=== PATIENT | female | born 1945 | race Caucasian/White ===

== ENCOUNTER 2019-04-13 17:02 | Emergency (ER) | payer MEDICARE, OTHER ==
[2019-04-13] MEDS ORDERED: BABY ASPIRIN 81 MG CHEW PO ONE (17:23)
[2019-04-13] MEDS ORDERED: MORPHINE SULFATE 2 MG INJ IV ONE (17:23)
[2019-04-13] MEDS ORDERED: Carafate 1 GM PO ONE ×2 (17:23→17:29)
[2019-04-13] MEDS ORDERED: Zofran 4 MG/2 ML VIAL IV ONE (17:23)
--- NOTE | 2019-04-13 17:23 | ERPHSYRPT ---
- History of Present Illness Time Seen by Provider: 04/13/19 17:05 Historian: patient, family Exam Limitations: no limitations Patient Subjective Stated Complaint: Chest pain Triage Nursing Assessment: Patient brought back to ED via w/c and transferred to bed per self. Patient A+O X3. Patient's skin pink,warm and dry. Patient complains of constant sharp chest pain in the middle of chest that goes in between shoulder blades for the past 3 days that has increased. Patient's lungs clear a/p donis. Heart tones audible. No edema noted. Physician History: retrosternal pain for the last 3 days. Pain is constant and also radiates to the left arm and the neck. No nausea vomiting. Patient says it feels like it is a bad case of indigestion. Timing/Duration: day(s) (3) Activities at Onset: none Quality: other (indigestion) Location: substernal Chest Pain Radiation: jaw, neck, arm Severity of Pain-Max: moderate Severity of Pain-Current: moderate Modifying Factors: Improves With: nothing Associated Symptoms: nausea, heartburn, No vomiting, No palpitations, No abdominal pain, No shortness of breath, No cough, No hurts to breathe, No diaphoresis, No chills, No fever, No fatigue, No weakness, No swelling/lump in chest, No syncope Prior Chest Pain/Cardiac Workup: no prior cardiac workup Nitro Today/Relief: no nitro taken today Aspirin Treatment Today: no aspirin today Allergies/Adverse Reactions: hydrocodone bitartrate [From [place]] Allergy (Mild, Verified 04/13/19 17:08) Nausea and Vomiting tramadol Allergy (Mild, Verified 04/13/19 17:08) Nausea and Vomiting Home Medications: Fenofibrate 54 mg PO DAILY 03/31/12 [History] Ascorbate Calcium [Vitamin C] 1,000 mg PO DAILY 11/30/13 [History] Calcium 500 mg PO DAILY 11/30/13 [History] ALPRAZolam [Xanax 0.5 mg] 0.5 mg PO HS 02/20/15 [History] Losartan Potassium [Cozaar 100Mg Tablet] 100 mg PO DAILY 02/20/15 [History] Insulin Aspart [Novolog] 25 units SQ BID 04/13/19 [History] Insulin Glargine,Hum.rec.anlog [Basaglar Kwikpen U-100] 50 units SQ BID [History] Hx Tetanus, Diphtheria Vaccination/Date Given: (UNKNOWN) Hx Influenza Vaccination/Date Given: Yes Hx Pneumococcal Vaccination/Date Given: Yes Immunizations Up to Date: Yes - Review of Systems Constitutional: No Fever, No Chills Eyes: No Symptoms Ears, Nose, & Throat: No Symptoms Respiratory: No Cough, No Dyspnea Cardiac: Chest Pain, No Edema, No Syncope Abdominal/Gastrointestinal: Other (indigestion), No Abdominal Pain, No Nausea, No Vomiting, No Diarrhea Genitourinary Symptoms: No Dysuria Musculoskeletal: No Back Pain, No Neck Pain Skin: No Rash Neurological: No Dizziness, No Focal Weakness, No Sensory Changes Psychological: No Symptoms Endocrine: No Symptoms All Other Systems: Reviewed and Negative - Past Medical History Pertinent Past Medical History: No Neurological History: No Pertinent History ENT History: Cataracts Cardiac History: High Cholesterol Respiratory History: No Pertinent History Endocrine Medical History: Diabetes Type II Musculoskeletal History: Arthritis GI Medical History: No Pertinent History History: No Pertinent History Psycho-Social History: No Pertinent History Female Reproductive Disorders: No Pertinent History Other Medical History: denies HTN - Past Surgical History Past Surgical History: Yes Neuro Surgical History: No Pertinent History Cardiac: No Pertinent History Respiratory: No Pertinent History Gastrointestinal: Cholecystectomy Genitourinary: No Pertinent History Musculoskeletal: Orthopedic Surgery Female Surgical History: No Pertinent History Other Surgical History: back discectomy, back for arthritis, fx repair back. bilateral carpal tunel and bilateral trigger finger, back stimulator - Social History Smoking Status: Never smoker Exposure to second hand smoke: No Drug Use: none Patient Lives Alone: No - Female History Hx Last Menstrual Period: menopausal Hx Now: No - Nursing Vital Signs Nursing Vital Signs: Initial Vital Signs Pulse Rate 91 H 04/13/19 17:09 Respiratory Rate 19 04/13/19 17:09 Blood Pressure 164/69 04/13/19 17:09 O2 Sat by Pulse Oximetry 97 04/13/19 17:09 Pain Scale Pain Intensity 10 - Physical Exam General Appearance: no apparent distress, alert Eye Exam: PERRL/EOMI, eyes nml inspection Ears, Nose, Throat Exam: normal ENT inspection, moist mucous membranes Neck Exam: normal inspection, non-tender, supple, full range of motion Respiratory Exam: normal breath sounds, lungs clear, No respiratory distress Cardiovascular Exam: regular rate/rhythm, normal heart sounds, normal peripheral pulses, tachycardia, capillary refill <2 sec, No murmur, No friction rub, No gallop Gastrointestinal/Abdomen Exam: soft, No tenderness, No mass Back Exam: normal inspection, No CVA tenderness, No vertebral tenderness Extremity Exam: normal inspection, normal range of motion Neurologic Exam: alert, oriented x 3, cooperative, normal mood/affect, sensation nml, No motor deficits Skin Exam: normal color, warm, dry SpO2: 97 - Course Nursing assessment & vital signs reviewed: Yes EKG Interpreted by Me: RATE (88), Sinus Rhythm, Sinus Tach, NORMAL AXIS, NORMAL INTERVALS, NORMAL QRS - Radiology Exams Chest X-ray Interpretation: Interpreted by me, Negative Ordered Tests: Active Orders 24 hr Category Date Time Status Delicate [employer] Presser STAT Care 04/13/19 17:24 Active EKG-ER Only STAT Care 04/13/19 17:23 Active IV Insertion STAT Care 04/13/19 17:23 Active CHEST 1 VIEW (PORTABLE) Stat Exams 04/13/19 17:24 Ordered CBC W DIFF Stat Lab 04/13/19 17:40 Completed CK-Creatinine Phosphokinase Stat Lab 04/13/19 17:40 Completed CMP Stat Lab 04/13/19 17:40 Completed NT PRO BNP Stat Lab 04/13/19 17:40 Completed PROTIME WITH INR Stat Lab 04/13/19 17:40 Received PTT Stat Lab 04/13/19 17:40 Received TROPONIN Q3H Lab 04/13/19 17:40 Completed TROPONIN Q3H Lab 04/13/19 20:30 Ordered TROPONIN Q3H Lab 04/13/19 23:30 Ordered TROPONIN Q3H Lab 04/14/19 02:30 Ordered TROPONIN Q3H Lab 04/14/19 05:30 Ordered Medication Summary Discontinued Medications Generic Name Dose Route Start Last Admin Trade Name Freq PRN Reason Stop Dose Admin Aspirin 324 mg 04/13/19 17:23 04/13/19 17:31 Baby Aspirin 81 Mg Chew PO 04/13/19 17:24 324 mg STAT ONE Administration Aspirin Confirm 04/13/19 17:29 Baby Aspirin 81 Mg Chew Administered 04/13/19 17:30 Dose 324 mg .ROUTE .STK-MED ONE Morphine Sulfate 2 mg 04/13/19 17:23 04/13/19 17:34 Morphine Sulfate 2 Mg Inj IV 04/13/19 17:24 2 mg STAT ONE Administration Morphine Sulfate Confirm 04/13/19 17:29 Morphine Sulfate 2 Mg Inj Administered 04/13/19 17:30 Dose 2 mg .ROUTE .STK-MED ONE Ondansetron HCl 4 mg 04/13/19 17:23 04/13/19 17:31 Zofran 4 Mg/2 Ml Vial IV 04/13/19 17:24 4 mg STAT ONE Administration Ondansetron HCl Confirm 04/13/19 17:29 Zofran 4 Mg/2 Ml Vial Administered 04/13/19 17:30 Dose 4 mg .ROUTE .STK-MED ONE Sucralfate 1 g 04/13/19 17:23 04/13/19 17:31 Carafate 1 Gm PO 04/13/19 17:24 1 g STAT ONE Administration Sucralfate Confirm 04/13/19 17:29 Carafate 1 Gm Administered 04/13/19 17:30 Dose 1 g PO .STK-MED ONE Lab/Rad Data: Laboratory Result Diagrams 04/13/19 17:40 04/13/19 17:40 Laboratory Results 04/13/19 04/13/19 04/13/19 Range/Units 17:40 17:40 17:40 WBC 13.9 H (4.0-10.5) K/mm3 RBC 4.57 (4.1-5.4) M/mm3 Hgb 14.5 (12.0-16.0) gm/dl Hct 44.9 (35-47) % MCV 98.2 (78-100) fl MCH 31.7 (26-32) pg MCHC 32.3 (32-36) g/dl RDW 14.1 H (11.5-14.0) % Plt Count 300 (150-450) K/mm3 MPV 10.8 H (6-9.5) fl Gran % 65.8 (36.0-66.0) % Eos # (Auto) 0.21 (0-0.5) Absolute Lymphs (auto) 3.57 (1.0-4.6) Absolute Monos (auto) 0.95 (0.0-1.3) Lymphocytes % 25.6 (24.0-44.0) % Monocytes % 6.8 (0.0-12.0) % Eosinophils % 1.5 (0.00-5.0) % Basophils % 0.3 (0.0-0.4) % Absolute Granulocytes 9.15 H (1.4-6.9) Basophils # 0.04 (0-0.4) Sodium 139 (137-145) mmol/L Potassium 4.5 (3.5-5.1) mmol/L Chloride 105 (98-107) mmol/L Carbon Dioxide 26 (22-30) mmol/L Anion Gap 12.4 (5-15) MEQ/L BUN 25 H (7-17) mg/dL Creatinine 1.00 (0.52-1.04) mg/dL Estimated GFR 57.8 ML/MIN Glucose 112 H (74-106) mg/dL Calcium 9.9 (8.4-10.2) mg/dL Total Bilirubin 0.60 (0.2-1.3) mg/dL AST 44 H (14-36) U/L ALT 36 H (0-35) U/L Alkaline Phosphatase 72 (38-126) U/L Creatine Kinase 47 (30-135) U/L Troponin I < 0.012 (0.000-0.034) ng/mL NT-Pro-B Natriuret Pep 99.9 (0-900) pg/mL Serum Total Protein 8.5 H (6.3-8.2) g/dL Albumin 4.6 (3.5-5.0) g/dL - Progress Progress: improved Air Movement: good Progress Note: 04/13/19 18:21 workup negative. Advised admission to rule out ACS. Patient refused. The patient's family in the room. I explained the risks and options. They understood. The patient is a set this is been going on for 3 days. I think I' m okay. I want to go home. She understood the risk. And leaving AMA Blood Culture(s) Obtained: No Antibiotics given: No Counseled pt/family regarding: lab results, diagnosis, need for follow-up, rad results - Departure Departure Disposition: AMA Clinical Impression: Chest pain Qualifiers: Chest pain type: unspecified Qualified Code(s): R07.9 - Chest pain, unspecified Condition: Fair Critical Care Time: No Referrals: SUMANTH ZARAGOZA MD [Primary Care Provider] - 04/14/19 Instructions: Chest Pain (DC) Plan of Treatment: PCP tomorrow for further workup and management. Return to the ER for any emergency or new symptoms or worsening.
[2019-04-13] MEDS ORDERED: Zofran 4 MG/2 ML VIAL ONE (17:29)
[2019-04-13] MEDS ORDERED: BABY ASPIRIN 81 MG CHEW ONE (17:29)
[2019-04-13] MEDS ORDERED: MORPHINE SULFATE 2 MG INJ ONE (17:29)
[2019-04-13 17:39] LABS: Absolute Neutrophil Ct (ANC) 9.15 (1.4-6.9); BASOPHIL % 0.3 % (0.0-0.4); Basophil (Absolute #) 0.04 (0-0.4); Eosinophil % 1.5 % (0.00-5.0); Eosinophil (Absolute #) 0.21 (0-0.5); Hematocrit 44.9 % (35-47); Hemoglobin 14.5 gm/dl (12.0-16.0); Lymphocyte (Absolute #) 3.57 (1.0-4.6); Lymphocytes % 25.6 % (24.0-44.0); Mean Cell Volume 98.2 fl (78-100); Mean Corpuscular Hemoglobin 31.7 pg (26-32); Mean Corpuscular Hgb Concent. 32.3 g/dl (32-36); Mean Platelet Volume 10.8 fl (6-9.5); Monocyte (Absolute #) 0.95 (0.0-1.3); Monocytes % 6.8 % (0.0-12.0); Neutrophil % 65.8 % (36.0-66.0); Platelet Count 300 K/mm3 (150-450); Red Blood Count 4.57 M/mm3 (4.1-5.4); Red Cell Distribution Width 14.1 % (11.5-14.0); White Blood Count 13.9 K/mm3 (4.0-10.5)
[2019-04-13 17:59] LABS: ALBUMIN 4.6 g/dL (3.5-5.0); ANION GAP 12.4 MEQ/L (5-15); BILIRUBIN,TOTAL 0.6 mg/dL (0.2-1.3); Calcium 9.9 mg/dL (8.4-10.2); NT PRO BNP 99.9 pg/mL (0-900); Potassium 4.5 mmol/L (3.5-5.1); Total Protein 8.5 g/dL (6.3-8.2)
[2019-04-13 18:26] VITALS: BP 133/66; PULSE 82; O2SAT 96
[2019-04-13 19:04] LABS: INR 1.11 (0.8-3.0); PROTIME 12.6 SECONDS (9.95-12.35); PTT 35.2 SECONDS (25.3-37.0)
--- NOTE | 2019-04-14 08:35 | XRAY ---
Indication: Chest pain. Comparison: July 28, 2013. Portable chest underinflated and clear. Heart and mediastinal structures within normal limits. Bony thorax intact with mild degenerative changes and new spinal stimulator leads terminating mid thoracic level. Impression: Nonacute underinflated chest with chronic features.
== END 2019-04-13 18:33 | disposition left against medical advice (07) ==
LOC: ED 17:02
DX: R07.9 Chest pain, unspecified (principal); Z79.899 Other long term (current) drug therapy; E11.9 Type 2 diabetes mellitus without complications; M19.90 Unspecified osteoarthritis, unspecified site
CPT/HCPCS: 36000; 36415; 71045; 80053; 82550; 83880; 84484; 85025; 85610; 85730; 93005; 93041; 96374; 96375; 99284; J2270; J2405; A9270-GY

== ENCOUNTER 2019-06-29 08:33 | Day surgery (SDC) | payer MEDICARE, OTHER ==
[2012-03-31 08:58] VITALS: BP 159/79
[2019-06-29] MEDS ORDERED: Depo-Medrol 40 MG/ML IM ONE (08:34)
[2019-06-29] MEDS ORDERED: Marcaine 0.5% SDV 10 ML IM ONE (08:34)
[2019-06-29] MEDS ORDERED: VERSED 5 MG/5 ML ONE (09:37)
[2019-06-29] MEDS ORDERED: DIPRIVAN 200 MG/20 ML IV ONE (10:09)
[2019-06-29] MEDS ORDERED: Ketamine HCl 50 MG/ML ONE (10:10)
--- NOTE | 2019-06-29 12:28 | XRAY ---
Indication: Bilateral SI joint injection. Intraoperative fluoroscopy was provided for 16 seconds. 2 lateral digital spot images submitted for interpretation demonstrates posterior needle tip projecting over the mid sacrum. Correlate with intraoperative findings/report. Incidental partially visualized lower lumbar posterior fusion hardware.
--- NOTE | 2019-06-29 12:40 | XRAY ---
16 seconds fluoroscopy time in surgery for bilateral SI joint injections.
[2019-06-29] MEDS ORDERED: Lactated Ringers 1,000 ML IV ONE (14:43)
== END 2019-06-29 10:40 | disposition home or self-care (01) ==
LOC: SDC-PAIN 08:33
PROVIDERS: ATTEND Psychiatry & Neurology Pain Medicine
DX: M46.1 Sacroiliitis, not elsewhere classified (principal); I10 Essential (primary) hypertension; E11.9 Type 2 diabetes mellitus without complications; Z79.899 Other long term (current) drug therapy; H40.9 Unspecified glaucoma
CPT/HCPCS: 27096; 72202; 77002; 82962; J1030; J2250; J2704; G0260

== ENCOUNTER 2022-02-12 09:37 | Day surgery (SDC) | payer MEDICARE ==
[2012-03-31 08:58] VITALS: BP 159/79
[2022-02-12] MEDS ORDERED: BUPIVACAINE 0.5% VIAL IJ ONE (09:38)
[2022-02-12] MEDS ORDERED: Depo-Medrol 40 MG/ML IM ONE (09:38)
[2022-02-12] MEDS ORDERED: Zofran 4 MG/2 ML VIAL ONE (11:21)
[2022-02-12] MEDS ORDERED: DIPRIVAN 200 MG/20 ML IV ONE (11:27)
[2022-02-12] MEDS ORDERED: Lactated Ringers 1,000 ML IV ONE (13:07)
--- NOTE | 2022-02-12 14:15 | XRAY ---
Indication: Bilateral hip injection. Intraoperative fluoroscopy provided for 42 seconds. 6 digital spot image submitted for interpretation demonstrates needle tip projecting lateral to the left and right femur necks. Small amount of contrast injected for both needle tip placement. Correlate with intraoperative findings/report.
--- NOTE | 2022-02-12 14:19 | XRAY ---
42 seconds of fluoroscopy was used in surgery for bilateral hips intra-articular injections.
== END 2022-02-12 12:00 | disposition home or self-care (01) ==
LOC: SDC-PAIN 09:37
PROVIDERS: ATTEND Psychiatry & Neurology Pain Medicine
DX: M16.0 Bilateral primary osteoarthritis of hip (principal); E11.9 Type 2 diabetes mellitus without complications; Z79.899 Other long term (current) drug therapy
CPT/HCPCS: 20610; 73521; 77002; 82947; J1030; J2405; J2704; Q9966

== ENCOUNTER 2023-07-10 09:19 | Emergency (ER) | payer MEDICARE ==
[2023-07-10 09:38] VITALS: TEMP 97.8
--- NOTE | 2023-07-10 09:43 | ERPHSYRPT ---
- History of Present Illness Time Seen by Provider: 07/10/23 09:40 Historian: patient Exam Limitations: no limitations Patient Subjective Stated Complaint: Pt states that she has been vomiting and having diarrhea since yesterday Triage Nursing Assessment: Pt brought to the ER by her , hypertensive, rates pain as 8/10, pulses normal, skin n/w/d, states that she went to the restroom approx 15-20 times yesterday and 3-4 times today, weak, moaning, wheeled into the ER by her , no difficulty breathing Physician History: This is a morbidly obese 78-year-old white female patient of Dr. Zaragoza who presents with symptoms of abdominal pain, vomiting and diarrhea since yesterday and continues today. Patient has had 15-20 diarrheal bowel movements yesterday and already 3-4 this morning. She has some weakness present. She denies chest pain and she denies shortness of breath. Her abdominal pain is described as lower abdominal cramping when she is about ready to have the liquid stool passage. Patient has a history of insulin-dependent diabetes, hypertension, hyperlipidemia and anxiety. Patient denies back pain. Patient is refusing pain medicine at this time. Timing/Duration: yesterday, worse Activities at Onset: other (Passage of liquid stool rectally) Quality: cramping Abdominal Pain Onset Location: suprapubic (At the time of passage of liquid stool) Severity of Pain-Max: mild (To moderate) Severity of Pain-Current: mild (To moderate) Modifying Factors: Improves With: defecating, vomiting Associated Symptoms: diarrhea, loss of appetite, nausea, vomiting, weakness, No chest pain, No fever/chills, No headache, No shortness of breath Previous symptoms: no prior history Allergies/Adverse Reactions: hydrocodone bitartrate [From [place]] Allergy (Mild, Verified 07/10/23 09:38) Nausea and Vomiting tramadol Allergy (Mild, Verified 07/10/23 09:38) Nausea and Vomiting acetaminophen [From Percocet] Adverse Reaction (Verified 07/10/23 09:40) Vomiting fentanyl Adverse Reaction (Verified 07/10/23 09:40) Vomiting hydromorphone [From Dilaudid] Adverse Reaction (Verified 07/10/23 09:40) Vomiting ketorolac [From Toradol] Adverse Reaction (Verified 07/10/23 09:40) Vomiting morphine Adverse Reaction (Verified 07/10/23 09:40) Vomiting oxycodone [From Percocet] Adverse Reaction (Verified 07/10/23 09:40) Vomiting Home Medications: Fenofibrate 54 mg PO DAILY 03/31/12 [History] Ascorbate Calcium [Vitamin C] 1,000 mg PO DAILY 11/30/13 [History] Calcium 500 mg PO DAILY 11/30/13 [History] ALPRAZolam [Xanax 0.5 mg] 0.5 mg PO HS 02/20/15 [History] Losartan Potassium [Cozaar 100Mg Tablet] 100 mg PO DAILY 02/20/15 [History] Insulin Aspart [Novolog] 35 units SQ BID 04/13/19 [History] Insulin Glargine,Hum.rec.anlog [Basaglar Kwikpen U-100] 60 units SQ BID 04/13/19 [History] Bimatoprost 0.01% [Lumigan 0.01% 2.5 ml] 1 drop OP UD 07/10/23 [History] Dorzolamide/Timolol/Pf [Dorzolamide-Timolol 2%-0.5%] 1 each OP UD 07/10/23 [History] Valsartan 160 mg PO DAILY 07/10/23 [History] Hx Tetanus, Diphtheria Vaccination/Date Given: (UNKNOWN) Hx Influenza Vaccination/Date Given: Yes Hx Pneumococcal Vaccination/Date Given: Yes Immunizations Up to Date: Yes Travel Risk - International Travel Have you traveled outside of the country in past 3 weeks: No - Emerging Infectious Disease Are you exhibiting symptoms associated with any current EIDs: Yes Symptoms: Abdominal Pain, Diarrhea, Vomitting - Review of Systems Constitutional: Weakness Eyes: No Symptoms Ears, Nose, & Throat: No Symptoms Respiratory: No Symptoms Cardiac: No Symptoms Abdominal/Gastrointestinal: Abdominal Pain, Nausea, Vomiting, Diarrhea, Appetite Changes Genitourinary Symptoms: No Symptoms Musculoskeletal: No Symptoms Skin: No Symptoms Neurological: No Symptoms Psychological: No Symptoms Endocrine: No Symptoms Hematologic/Lymphatic: No Symptoms Immunological/Allergic: No Symptoms All Other Systems: Reviewed and Negative - Past Medical History Pertinent Past Medical History: Yes Neurological History: No Pertinent History ENT History: Cataracts Cardiac History: High Cholesterol Respiratory History: No Pertinent History Endocrine Medical History: Diabetes Type II Musculoskeletal History: Arthritis GI Medical History: No Pertinent History History: No Pertinent History Psycho-Social History: No Pertinent History Female Reproductive Disorders: No Pertinent History Other Medical History: denies HTN - Past Surgical History Past Surgical History: Yes Neuro Surgical History: No Pertinent History Cardiac: No Pertinent History Respiratory: No Pertinent History Gastrointestinal: Cholecystectomy Genitourinary: No Pertinent History Musculoskeletal: Orthopedic Surgery Female Surgical History: No Pertinent History Other Surgical History: back discectomy, back for arthritis, fx repair back. bilateral carpal tunel and bilateral trigger finger, back stimulator - Social History Smoking Status: Never smoker Exposure to second hand smoke: No Drug Use: none Patient Lives Alone: No - Nursing Vital Signs Nursing Vital Signs: Initial Vital Signs Temperature 97.8 F 07/10/23 09:26 Pulse Rate 92 H 07/10/23 09:26 Blood Pressure 169/103 07/10/23 09:26 O2 Sat by Pulse Oximetry 94 L 07/10/23 09:26 Pain Scale Pain Intensity 8 - Physical Exam General Appearance: no apparent distress, alert, anxiety, obese Eye Exam: PERRL/EOMI, eyes nml inspection Ears, Nose, Throat Exam: normal ENT inspection, moist mucous membranes Neck Exam: normal inspection, non-tender, supple, full range of motion Respiratory Exam: normal breath sounds, lungs clear, airway intact, No chest tenderness, No respiratory distress Cardiovascular Exam: regular rate/rhythm, normal heart sounds, normal peripheral pulses Gastrointestinal/Abdomen Exam: soft, normal bowel sounds, No tenderness, No guarding Pelvic Exam: not done Rectal Exam: not done Back Exam: normal inspection, normal range of motion, No CVA tenderness, No vertebral tenderness Extremity Exam: normal inspection, normal range of motion, pelvis stable Neurologic Exam: alert, oriented x 3, cooperative, statistical engineer II-XII nml as tested, normal mood/affect, nml cerebellar function, nml station & gait, sensation nml Skin Exam: normal color, warm, dry Lymphatic Exam: No adenopathy SpO2 Interpretation: borderline oxygenation SpO2: 94 O2 Delivery: Room Air - Course Nursing assessment & vital signs reviewed: Yes Ordered Tests: Active Orders 24 hr Category Date Time Status IV Insertion STAT Care 07/10/23 09:47 Active ABDOMEN AND PELVIS W/0 CONTRAS [CT] Stat Exams 07/10/23 09:49 Completed AMYLASE Stat Lab 07/10/23 09:54 Completed CBC W DIFF Stat Lab 07/10/23 09:54 Completed CMP Stat Lab 07/10/23 09:54 Completed LIPASE Stat Lab 07/10/23 09:54 Completed Lactic Acid Stat Lab 07/10/23 09:47 Completed Lactic Acid Stat Lab 07/10/23 12:08 Received TROPONIN Q4H Lab 07/10/23 09:54 Completed TROPONIN Q4H Lab 07/10/23 14:00 Ordered TROPONIN Q4H Lab 07/10/23 18:00 Ordered UA W/RFX UR CULTURE Stat Lab 07/10/23 09:49 Ordered Medication Summary Generic Name Dose Route Start Last Admin Trade Name Freq PRN Reason Stop Dose Admin Sodium Chloride 1,000 mls @ 100 mls/hr 07/10/23 10:00 07/10/23 09:56 Sodium Chloride 0.9% 1000 Ml IV 08/09/23 09:59 100 mls/hr .Q10H JACKIE Administration Discontinued Medications Generic Name Dose Route Start Last Admin Trade Name Freq PRN Reason Stop Dose Admin Ondansetron HCl 4 mg 07/10/23 09:47 07/10/23 09:56 Ondansetron Hcl 4 Mg/2 Ml Vial IV 07/10/23 09:48 4 mg STAT ONE Administration Ondansetron HCl Confirm 07/10/23 09:52 Ondansetron Hcl 4 Mg/2 Ml Vial Administered 07/10/23 09:53 Dose 4 mg .ROUTE .STK-MED ONE Pantoprazole Sodium 40 mg 07/10/23 09:47 07/10/23 09:56 Pantoprazole 40 Mg Vial IV 07/10/23 09:48 40 mg STAT ONE Administration Pantoprazole Sodium Confirm 07/10/23 09:52 Pantoprazole 40 Mg Vial Administered 07/10/23 09:53 Dose 40 mg IV .STK-MED ONE Lab/Rad Data: Laboratory Result Diagrams 07/10/23 09:54 07/10/23 09:54 Laboratory Results 07/10/23 07/10/23 07/10/23 Range/Units 11:15 09:54 09:54 WBC (4.0-10.5) x10^3/uL RBC (4.1-5.4) x10^6/uL Hgb (12.0-16.0) g/dL Hct (35-47) % MCV (78-100) fL MCH (26-32) pg MCHC (32-36) g/dL RDW (11.5-14.0) % Plt Count (150-450) x10^3/uL MPV (7.5-11.0) fL Gran % (36.0-66.0) % Immature Gran % (Auto) (0.00-0.4) % Nucleat RBC Rel Count (0.00-0.1) % Eos # (Auto) (0-0.5) x10^3/uL Immature Gran # (Auto) (0.00-0.03) x10^3u/L Absolute Lymphs (auto) (1.0-4.6) x10^3/uL Absolute Monos (auto) (0.0-1.3) x10^3/uL Absolute Nucleated RBC (0.00-0.01) x10^3u/L Lymphocytes % (24.0-44.0) % Monocytes % (0.0-12.0) % Eosinophils % (0.00-5.0) % Basophils % (0.0-0.4) % Absolute Granulocytes (1.4-6.9) x10^3/uL Basophils # (0-0.4) x10^3/uL Sodium 140 (135-145) mmol/L Potassium 4.3 (3.5-5.1) mmol/L Chloride 106 (98-107) mmol/L Carbon Dioxide 20 L (22-30) mmol/L Anion Gap 18.9 H (5-15) MEQ/L BUN 17 (7-17) mg/dL Creatinine 0.87 (0.52-1.04) mg/dL Estimated GFR 68.2 ML/MIN Glucose 208 H (74-106) mg/dL Lactic Acid (0.4-2.0) Calcium 9.1 (8.4-10.2) mg/dL Total Bilirubin 0.90 (0.2-1.3) mg/dL AST 38 H (14-36) U/L ALT 28 (0-35) U/L Alkaline Phosphatase 68 (38-126) U/L Troponin I < 0.012 (0.000-0.034) ng/mL Serum Total Protein 8.0 (6.3-8.2) g/dL Albumin 4.2 (3.5-5.0) g/dL Amylase 52 (30-110) U/L Lipase 21 L (23-300) U/L Influenza Type A Ag NEGATIVE (NEGATIVE) Influenza Type B Ag NEGATIVE (NEGATIVE) RSV (PCR) NEGATIVE (NEGATIVE) SARS-CoV-2 (PCR) NEGATIVE (NEGATIVE) 07/10/23 07/10/23 Range/Units 09:54 09:47 WBC 10.7 H (4.0-10.5) x10^3/uL RBC 4.96 (4.1-5.4) x10^6/uL Hgb 15.3 (12.0-16.0) g/dL Hct 48.1 H (35-47) % MCV 97.0 (78-100) fL MCH 30.8 (26-32) pg MCHC 31.8 L (32-36) g/dL RDW 13.2 (11.5-14.0) % Plt Count 245 (150-450) x10^3/uL MPV 10.5 (7.5-11.0) fL Gran % 87.1 H (36.0-66.0) % Immature Gran % (Auto) 0.4 (0.00-0.4) % Nucleat RBC Rel Count 0.0 (0.00-0.1) % Eos # (Auto) 0.05 (0-0.5) x10^3/uL Immature Gran # (Auto) 0.04 H (0.00-0.03) x10^3u/L Absolute Lymphs (auto) 0.81 L (1.0-4.6) x10^3/uL Absolute Monos (auto) 0.46 (0.0-1.3) x10^3/uL Absolute Nucleated RBC 0.00 (0.00-0.01) x10^3u/L Lymphocytes % 7.6 L (24.0-44.0) % Monocytes % 4.3 (0.0-12.0) % Eosinophils % 0.5 (0.00-5.0) % Basophils % 0.1 (0.0-0.4) % Absolute Granulocytes 9.28 H (1.4-6.9) x10^3/uL Basophils # 0.01 (0-0.4) x10^3/uL Sodium (135-145) mmol/L Potassium (3.5-5.1) mmol/L Chloride (98-107) mmol/L Carbon Dioxide (22-30) mmol/L Anion Gap (5-15) MEQ/L BUN (7-17) mg/dL Creatinine (0.52-1.04) mg/dL Estimated GFR ML/MIN Glucose (74-106) mg/dL Lactic Acid 2.3 H (0.4-2.0) Calcium (8.4-10.2) mg/dL Total Bilirubin (0.2-1.3) mg/dL AST (14-36) U/L ALT (0-35) U/L Alkaline Phosphatase (38-126) U/L Troponin I (0.000-0.034) ng/mL Serum Total Protein (6.3-8.2) g/dL Albumin (3.5-5.0) g/dL Amylase (30-110) U/L Lipase (23-300) U/L Influenza Type A Ag (NEGATIVE) Influenza Type B Ag (NEGATIVE) RSV (PCR) (NEGATIVE) SARS-CoV-2 (PCR) (NEGATIVE) - Progress Progress: improved, re-examined Progress Note: 07/10/23 11:10 This patient's medical issue is 1 of moderate complexity. The level of complexity in the workup performed is based on review the patient's past medical history, review of the patient's medication list, review the patient drug allergy list, history present illness and physical findings on examination. The workup in this patient includes intravenous line placement, infusion of normal saline solution, infusion of Zofran, infusion of IV Protonix, CBC, CMP, amylase, lipase, urinalysis, stool for C. difficile, CT scan of the abdomen pelvis without contrast. We also ordered viral swabs. 07/10/23 12:26 CT scan of the abdomen pelvis without contrast was interpreted by the radiologist and I reviewed the impression. The impression states fatty liver. Colonic diverticulosis. Bilateral renal cyst. Arteriosclerotic disease. Chronic bony findings. No acute or new intra-abdominal or intrapelvic findings. 07/10/23 12:43 I interpreted the patient's laboratory data results. Patient has a mild leukocytosis. She has clinical evidence of colitis and we will treat this as an outpatient by remotely sending a prescription of Flagyl to her pharmacy. At the time of discharge patient states she is feeling much better. She denies chest pain. She denies abdominal pain. She denies shortness of breath. Counseled pt/family regarding: lab results, diagnosis, need for follow-up, rad results Medical Desision Making - Independent Historian Additional History obtained from: Spouse - Diagnostic Testing Diagnostic test were ordered, analyzed, and reviewed by me: Yes Radiological Interpretation: Reviewed by me, Teleradiologist Report - Risk of complications The pt has a mod risk of morbidity or mortality based on: Need for prescription drug management - Departure Departure Disposition: Home Clinical Impression: Vomiting and diarrhea, Colitis Condition: Stable Critical Care Time: No Referrals: SUMANTH ZARAGOZA MD [Primary Care Provider] - Follow up/PCP as directed Additional Instructions: Drink plenty of clear liquids before advancing your diet. Take your antibiotics and other medications as prescribed. Call your primary care provider today to make arranges for follow-up appointment for further evaluation and management. Prescriptions: Ondansetron ODT 4 MG [Zofran Odt 4 mg] 4 mg PO Q6H PRN PRN #10 tablet PRN Reason: Vomiting Metronidazole 500 mg [Flagyl 500 MG] 500 mg PO TID #21 tablet
[2023-07-10] MEDS ORDERED: Sodium Chloride 0.9% 1000 ML 1,000 ML ONE (09:52)
[2023-07-10] MEDS ORDERED: Zofran 4 MG/2 ML VIAL ONE (09:52)
[2023-07-10] MEDS ORDERED: PROTONIX 40 MG IV IV ONE (09:52)
[2023-07-10 09:54] LABS: Absolute Neutrophil Ct (ANC) 9.28 x10^3/uL (1.4-6.9); BASOPHIL % 0.1 % (0.0-0.4); Basophil (Absolute #) 0.01 x10^3/uL (0-0.4); Eosinophil % 0.5 % (0.00-5.0); Eosinophil (Absolute #) 0.05 x10^3/uL (0-0.5); Hematocrit 48.1 % (35-47); Hemoglobin 15.3 g/dL (12.0-16.0); IMMATURE GRAN # 0.04 x10^3u/L (0.00-0.03); IMMATURE GRAN % 0.4 % (0.00-0.4); Lymphocyte (Absolute #) 0.81 x10^3/uL (1.0-4.6); Lymphocytes % 7.6 % (24.0-44.0); Mean Corpuscular Hemoglobin 30.8 pg (26-32); Mean Corpuscular Hgb Concent. 31.8 g/dL (32-36); Mean Platelet Volume 10.5 fL (7.5-11.0); Monocyte (Absolute #) 0.46 x10^3/uL (0.0-1.3); Monocytes % 4.3 % (0.0-12.0); Neutrophil % 87.1 % (36.0-66.0); Platelet Count 245 x10^3/uL (150-450); Red Blood Count 4.96 x10^6/uL (4.1-5.4); Red Cell Distribution Width 13.2 % (11.5-14.0); White Blood Count 10.7 x10^3/uL (4.0-10.5)
[2023-07-10] MEDS: Zofran 4 MG/2 ML VIAL IV ONE (09:56)
[2023-07-10] MEDS: PROTONIX 40 MG IV IV ONE (09:56)
[2023-07-10] MEDS: Sodium Chloride 0.9% 1000 ML 1,000 ML IV SCH (09:56)
[2023-07-10 10:03] LABS: ALBUMIN 4.2 g/dL (3.5-5.0); ANION GAP 18.9 MEQ/L (5-15); BILIRUBIN,TOTAL 0.9 mg/dL (0.2-1.3); Calcium 9.1 mg/dL (8.4-10.2); Creatinine 1 0.87 mg/dL (0.52-1.04); EST GLOMERULAR FILTRATION RATE 68.2 ML/MIN; Potassium 4.3 mmol/L (3.5-5.1)
--- NOTE | 2023-07-10 10:31 | XRAY ---
Indication: Vomiting and diarrhea. Multiple contiguous axial images obtained through the abdomen and pelvis without contrast. Comparison: January 02, 2022 Lung bases demonstrates minimal scattered subsegmental atelectasis/scarring. No infiltrate or effusion. Heart not enlarged. Again beam artifact from bilateral L3-S1 fusion hardware. Noncontrasted stomach and bowel loops nonobstructed. Normal appendix. Again scattered colonic diverticulosis without diverticulitis, fatty liver, cholecystectomy, and bilateral peripelvic renal cysts. No free fluid/air. Remaining liver, pancreas, spleen, adrenal glands, kidneys, ureters, bladder, and uterus are unremarkable for noncontrast exam. There remains mild scattered aortoiliac calcification without AAA. Osseous structures intact again with osteopenia and mild/moderate multilevel thoracolumbar degenerative spondylosis. Impression: 1. Again beam artifact from lumbar fusion hardware. 2. Chronic findings include fatty liver, colonic diverticulosis, bilateral renal cysts, arteriosclerotic disease, and chronic bony findings. 3. No new/acute findings on this noncontrast exam.
[2023-07-10 11:11] VITALS: RESP 18
[2023-07-10 12:01] LABS: INFLUENZA A NEGATIVE (NEGATIVE); INFLUENZA B NEGATIVE (NEGATIVE); RESPIRATORY SYNCTIAL VIRUS NEGATIVE (NEGATIVE); SARS-CoV-2 Xpert Express NEGATIVE (NEGATIVE)
[2023-07-10 13:33] LABS: Appearance Clear (Clear); Bacteria None Seen /HPF (None Seen); Bilirubin Negative (Negative); Blood Negative (Negative); Epithelial Cells None Seen /HPF (None Seen); Glucose, Urine Negative (Negative); Hyaline Casts NONE SEEN /LPF (0-2); Ketones Trace (Negative); Leukocyte Esterase Negative (Negative); Nitrite Negative (Negative); Protein,Urine Dip Negative (Negative); RBC 0-2 /HPF (0-5); Specific Gravity 1.025 (1.005-1.030); WBC 0-2 /HPF (0-5)
[2023-07-10 13:34] VITALS: BP 123/68; PULSE 82; O2SAT 95
[2023-07-10 13:34] LABS: ADD URINE CULTURE? NO (NO)
== END 2023-07-10 14:02 | disposition home or self-care (01) ==
LOC: ED 09:19
DX: K52.9 Noninfective gastroenteritis and colitis, unspecified (principal); E86.0 Dehydration; R11.2 Nausea with vomiting, unspecified; R10.30 Lower abdominal pain, unspecified; I10 Essential (primary) hypertension; E78.5 Hyperlipidemia, unspecified; E11.9 Type 2 diabetes mellitus without complications; Z79.4 Long term (current) use of insulin; Z79.899 Other long term (current) drug therapy
CPT/HCPCS: 0241U; 36000; 36415; 74176; 80053; 81001; 82150; 83605; 83690; 84484; 85025; 96374; 96375; 99284; J2405

== ENCOUNTER 2024-08-09 12:05 | Emergency (ER) | payer MEDICARE ==
[2024-08-09 12:30] VITALS: TEMP 97.9
[2024-08-09] MEDS ORDERED: TORAdol 30 mg Injection IM ONE (12:30)
--- NOTE | 2024-08-09 12:34 | ERPHSYRPT ---
- History of Present Illness Time Seen by Provider: 08/09/24 12:15 Source: patient Exam Limitations: no limitations Patient Subjective Stated Complaint: 3 days ago hip started hurting and now cannot bear any weight on it at all. she has had 5 back surgeries Triage Nursing Assessment: pt is alert and oriented x3, not able to bear weight on left hip, appears to be in extreme pain. states she did not fall or have any injury. no bruising noted no visible deformity seen. pedal pushes strong and equal bilaterally. Physician History: 79-year-old female presents to our emergency department for evaluation of left hip pain. Patient reports the pain started spontaneously about 3 days ago. The pain is got progressively worse. Pain worse with palpation and weightbearing. Patient states her pain is mostly at the posterolateral aspect of the left hip. No associated symptomology. No chest pain or shortness of breath. No nausea vomiting or diaphoresis. Patient denies falls injury. Patient otherwise feels well. at bedside. They voiced no other complaints or concerns at this time. Portions of this note were created with voice recognition technology. There may be grammatical, spelling, punctuation or sound alike errors Timing/Duration: day(s) Severity: moderate (3 days ago) Modifying Factors: Improves With: movement Associated Symptoms: denies symptoms Allergies/Adverse Reactions: hydrocodone bitartrate [From [place]] Allergy (Mild, Verified 08/09/24 12:30) Nausea and Vomiting tramadol Allergy (Mild, Verified 08/09/24 12:30) Nausea and Vomiting acetaminophen [From Percocet] Adverse Reaction (Verified 08/09/24 12:30) Vomiting fentanyl Adverse Reaction (Verified 08/09/24 12:30) Vomiting hydromorphone [From Dilaudid] Adverse Reaction (Verified 08/09/24 12:30) Vomiting ketorolac [From Toradol] Adverse Reaction (Verified 08/09/24 12:30) Vomiting morphine Adverse Reaction (Verified 08/09/24 12:30) Vomiting oxycodone [From Percocet] Adverse Reaction (Verified 08/09/24 12:30) Vomiting Home Medications: Fenofibrate 54 mg PO DAILY 03/31/12 [History] Ascorbate Calcium [Vitamin C] 1,000 mg PO DAILY 11/30/13 [History] Calcium 500 mg PO DAILY 11/30/13 [History] ALPRAZolam [Xanax 0.5 mg] 0.5 mg PO HS 02/20/15 [History] Insulin Aspart [Novolog] 35 units SQ BID 04/13/19 [History] Insulin Glargine,Hum.rec.anlog [Basaglar Kwikpen U-100] 60 units SQ BID 04/13/19 [History] Bimatoprost 0.01% [Lumigan 0.01% 2.5 ml] 1 drop OP UD 07/10/23 [History] Dorzolamide/Timolol/Pf [Dorzolamide-Timolol 2%-0.5%] 1 each OP UD 07/10/23 [History] Valsartan 160 mg PO DAILY 07/10/23 [History] Hx Tetanus, Diphtheria Vaccination/Date Given: Yes (UNKNOWN) Hx Influenza Vaccination/Date Given: Yes Hx Pneumococcal Vaccination/Date Given: Yes Immunizations Up to Date: Yes Travel Risk - International Travel Have you traveled outside of the country in past 3 weeks: No - Emerging Infectious Disease Are you exhibiting symptoms associated with any current EIDs: Yes Symptoms: Abdominal Pain, Diarrhea, Vomitting - Review of Systems Constitutional: No Symptoms, No Fever, No Chills Eyes: No Symptoms Ears, Nose, & Throat: No Symptoms Respiratory: No Symptoms, No Cough, No Dyspnea Cardiac: No Symptoms, No Chest Pain, No Edema, No Syncope Abdominal/Gastrointestinal: No Symptoms, No Abdominal Pain, No Nausea, No Vomiting, No Diarrhea Genitourinary Symptoms: No Symptoms, No Dysuria Musculoskeletal: No Symptoms, No Back Pain, No Neck Pain Skin: No Symptoms, No Rash Neurological: No Symptoms, No Dizziness, No Focal Weakness, No Sensory Changes Psychological: No Symptoms Endocrine: No Symptoms Hematologic/Lymphatic: No Symptoms Immunological/Allergic: No Symptoms All Other Systems: Reviewed and Negative - Past Medical History Pertinent Past Medical History: Yes Neurological History: No Pertinent History ENT History: Cataracts Cardiac History: High Cholesterol Respiratory History: No Pertinent History Endocrine Medical History: Diabetes Type II Musculoskeletal History: Arthritis GI Medical History: No Pertinent History History: No Pertinent History Psycho-Social History: No Pertinent History Female Reproductive Disorders: No Pertinent History Other Medical History: denies HTN - Past Surgical History Past Surgical History: Yes Neuro Surgical History: No Pertinent History Cardiac: No Pertinent History Respiratory: No Pertinent History Gastrointestinal: Cholecystectomy Genitourinary: No Pertinent History Musculoskeletal: Orthopedic Surgery Female Surgical History: No Pertinent History Other Surgical History: back discectomy, back for arthritis, fx repair back. bilateral carpal tunel and bilateral trigger finger, back stimulator - Social History Smoking Status: Never smoker Exposure to second hand smoke: No Drug Use: none - Social Determinants of Health Will the patient participate in the screening: Yes Do you worry about a steady place to live?: No Do you have any problems with any of the following?: No known problems In the past 12 months,have you had to go without utilities?: No Transportation Issues: No Has anyone in your support network made you feel unsafe?: No Have you or anyone in your house had to go w/o enough food: No - Nursing Vital Signs Nursing Vital Signs: Initial Vital Signs Temperature 97.9 F 08/09/24 12:06 Pulse Rate 77 08/09/24 12:06 Respiratory Rate 18 08/09/24 12:06 Blood Pressure 178/63 08/09/24 12:06 O2 Sat by Pulse Oximetry 96 08/09/24 12:06 Pain Scale Pain Intensity 4 - Physical Exam General Appearance: no apparent distress, alert Eye Exam: PERRL/EOMI, eyes nml inspection Ears, Nose, Throat Exam: normal ENT inspection, moist mucous membranes Neck Exam: normal inspection, full range of motion Respiratory Exam: normal breath sounds, lungs clear, No respiratory distress Cardiovascular Exam: regular rate/rhythm, normal heart sounds, normal peripheral pulses Gastrointestinal/Abdomen Exam: soft, normal bowel sounds, No tenderness, No mass Back Exam: normal inspection, normal range of motion, No CVA tenderness, No vertebral tenderness Extremity Exam: normal inspection, normal range of motion, pelvis stable, other (Tenderness palpation posterior aspect left hip. The involved extremities neurovascular intact distally compartments are soft cap refill less than 2 seconds. Overlying soft tissue intact. No open or draining lesions. No signs of trauma) Neurologic Exam: alert, oriented x 3, cooperative, normal mood/affect, sensation nml, No motor deficits Skin Exam: normal color, warm, dry, No rash Lymphatic Exam: No adenopathy SpO2 Interpretation: normal SpO2: 96 O2 Delivery: Room Air - Course Nursing assessment & vital signs reviewed: Yes - CT Exams Lower Extremity CT Interpretation: Tele-radiologist Report (Left hip) Ordered Tests: Active Orders 24 hr Category Date Time Status LOWER EXTREMITY WO CONTRAST [CT] Stat Exams 08/09/24 12:29 Completed Medication Summary Discontinued Medications Generic Name Dose Route Start Last Admin Trade Name Zachariah PRN Reason Stop Dose Admin Ketorolac Tromethamine 30 mg 08/09/24 12:30 Ketorolac Tromethamine 30 Mg/Ml Inj IM 08/09/24 12:31 STAT ONE Ketorolac Tromethamine Confirm 08/09/24 13:32 Ketorolac Tromethamine 30 Mg/Ml Inj Administered 08/09/24 13:33 Dose 30 mg .ROUTE .EasyCopay ONE - Progress Progress: improved Progress Note: 79-year-old female presents to emergency department for evaluation of left hip pain worsening over the past several days. Physical exam reveals tenderness at the posterior lateral hip near the trochanteric bursa. There is point tenderness at this location. Overlying soft tissue intact. Patient received Toradol for pain control. Pain significantly improved but did not resolve. Patient states she does not want additional pain medication. Patient will take Tylenol when she gets home per patient. CT left hip shows chronic findings. No acute fractures or dislocations. He referred to the orthopedic clinic provided. Patient will follow-up with orthopedic clinic tomorrow for further evaluation and treatment. at bedside. They voiced no other complaints or concerns at this time. Portions of this note were created with voice recognition technology. There may be grammatical, spelling, punctuation or sound alike errors Complexity of problem addressed is moderate acute complicated. No critical care time. Complexity of data reviewed and analyzed is moderate. Test ordered chest reviewed results analyzed and correlated clinically with history and physical exam. Risk of complication or risk of morbidity/mortality of patient management is low. Vital stable. Time spent to discharge patient is approx imately 15 minutes. Plan of care established for shared decision making. No social determinants of health present to impede follow-up. Portions of this note were created with voice recognition technology. There may be grammatical, spelling, punctuation or sound alike errors 08/09/24 14:36 Counseled pt/family regarding: diagnosis, need for follow-up, rad results - Departure Departure Disposition: Home Clinical Impression: Hip pain, Bursitis Condition: Stable Critical Care Time: No Referrals: SUMANTH ZARAGOZA MD [Primary Care Provider, [facility]] - Follow up/PCP as directed Additional Instructions: Discharge/Care Plan JORGE PADILLA was seen on 08/09/24 in the Emergency Room. The patient was counseled regarding Diagnosis,Lab results, Imaging studies, need for follow up and when to return to the Emergency Room. Prescriptions given: Discharge Note I have spoken with the patient and/or caregivers. I have explained the patient's condition, diagnosis and treatment plan based on the information available to me at this time. I have answered the patient's and/or caregiver's questions and addressed any concerns. The patient and/or caregivers have as good understanding of the patient's diagnosis, condition and treatment plan as can be expected at this point. The vital signs have been stable. The patient's condition is stable and appropriate for discharge from the emergency department. The patient will pursue further outpatient evaluation with the primary care physician or other designated or consulting physician as outlined in the discharge instructions. The patient and/or caregivers are agreeable to this plan of care and follow-up instructions have been explained in detail. The patient and/or caregivers have received these instruction. The patient/and or caregivers are aware that any significant change in condition or worsening of symptoms jackelin uld prompt an immediate return to this or the closest emergency department or call 911. Outpatient Orders: Ortho Referral Time Frame: 1 Day, Facility: [facility], Location: [facility]
[2024-08-09] MEDS ORDERED: TORAdol 30 mg Injection ONE (13:32)
[2024-08-09 14:03] VITALS: BP 147/54; PULSE 74; RESP 15
--- NOTE | 2024-08-09 14:11 | XRAY ---
Indication: Pain. No known injury. Multiple contiguous images obtained through left hip. Sagittal and coronal reformatted images obtained. Comparison: CT abdomen/pelvis July 10, 2023 Osseous structures remain demineralized. Left hip articulation intact. There remains mild degenerative changes left SI joint and left hip. No acute fracture, suspicious bony lesions, or bony remodeling. Surrounding soft tissues again demonstrates minimal vascular calcifications. No focal solid/cystic soft tissue mass or pathologic inguinal lymphadenopathy. Visualized pelvic contents again demonstrates sigmoid diverticulosis. Impression: Again chronic findings including osteopenia, degenerative changes, arteriosclerotic disease, and sigmoid diverticulosis. No new/acute findings on this noncontrast exam.
[2024-08-09 14:30] VITALS: O2SAT 96
== END 2024-08-09 14:59 | disposition home or self-care (01) ==
LOC: ED 12:05
DX: M70.62 Trochanteric bursitis, left hip (principal); M25.552 Pain in left hip; E78.5 Hyperlipidemia, unspecified; E11.9 Type 2 diabetes mellitus without complications; Z79.4 Long term (current) use of insulin; Z79.899 Other long term (current) drug therapy
CPT/HCPCS: 73700; 99283; 99284; J1885

== ENCOUNTER 2025-02-13 13:18 | Emergency (ER) | payer MEDICARE ==
[2025-02-13 13:43] VITALS: BP 137/49; PULSE 91; RESP 16; TEMP 98.4; O2SAT 96
--- NOTE | 2025-02-13 13:56 | XRAY ---
Indication: Pain. Comparison: None 2 view left lower leg demonstrates osteopenia, small posterior heel spur, tiny suprapatella spur, and mild scattered vascular calcifications. No other bony, articular, or soft tissue abnormalities.
--- NOTE | 2025-02-13 14:02 | ERPHSYRPT ---
- History of Present Illness Source: patient, family Patient Subjective Stated Complaint: patient states Dr. Terry had proce righ leg Dec. last thursday Dr. Terry placed stent to both legs. patients right leg went out on her thursday night, patient states that the pain started worsening yesterday Triage Nursing Assessment: patient presents to ed via private vehicle, patient wheeled into ed, patient alert and oriented x4, skin p/w/d, patient complains of ble pain, no redness noted to ble, patient has some swelling noted bilaterally, pedal pulses present, patient complains of pain upon palpation to right lower extremity, patient has necrosis to bilateral heels Physician History: Patient comes emergency room due to right lower extremity pain going on for the past couple days patient states that she moved her leg wrong and now is having pain in her right lower extremity recently she had some stents placed by Dr. Terry Of cardiology and both legs. Patient states that she has fulfilled of her lower extremities and no other complaints just complains of leg pain in the mid calf region patient is on blood thinners Method of Injury: twisted Occurred: days ago Quality: throbbing Lower Extremities Pain: leg: right Modifying Factors: Improves With: movement Allergies/Adverse Reactions: hydrocodone bitartrate [From [place]] Allergy (Mild, Verified 02/13/25 13:38) Nausea and Vomiting tramadol Allergy (Mild, Verified 02/13/25 13:38) Nausea and Vomiting acetaminophen [From Percocet] Adverse Reaction (Verified 02/13/25 13:38) Vomiting fentanyl Adverse Reaction (Verified 02/13/25 13:38) Vomiting hydromorphone [From Dilaudid] Adverse Reaction (Verified 02/13/25 13:38) Vomiting ketorolac [From Toradol] Adverse Reaction (Verified 02/13/25 13:38) Vomiting morphine Adverse Reaction (Verified 02/13/25 13:38) Vomiting oxycodone [From Percocet] Adverse Reaction (Verified 02/13/25 13:38) Vomiting Home Medications: Fenofibrate 54 mg PO DAILY 03/31/12 [History] Ascorbate Calcium [Vitamin C] 1,000 mg PO DAILY 11/30/13 [History] Calcium 500 mg PO DAILY 11/30/13 [History] ALPRAZolam [Xanax 0.5 mg] 0.5 mg PO HS 02/20/15 [History] Insulin Aspart [Novolog] 35 units SQ BID 04/13/19 [History] Insulin Glargine,Hum.rec.anlog [Basaglar Kwikpen U-100] 60 units SQ BID 04/13/19 [History] Bimatoprost 0.01% [Lumigan 0.01% 2.5 ml] 1 drop OP UD 07/10/23 [History] Dorzolamide/Timolol/Pf [Dorzolamide-Timolol 2%-0.5%] 1 each OP UD 07/10/23 [History] Valsartan 160 mg PO DAILY 07/10/23 [History] Hx Tetanus, Diphtheria Vaccination/Date Given: Yes (UNKNOWN) Hx Influenza Vaccination/Date Given: Yes Hx Pneumococcal Vaccination/Date Given: Yes Travel Risk - International Travel Have you traveled outside of the country in past 3 weeks: No - Emerging Infectious Disease Are you exhibiting symptoms associated with any current EIDs: No Symptoms: Abdominal Pain, Diarrhea, Vomitting - Review of Systems Constitutional: No Fever, No Chills Respiratory: No Cough, No Dyspnea Cardiac: No Chest Pain, No Edema, No Syncope Musculoskeletal: Other (pain in calf right side), No Deformity, No Fall Neurological: No Dizziness, No Focal Weakness, No Sensory Changes - Past Medical History Pertinent Past Medical History: Yes Neurological History: No Pertinent History ENT History: Cataracts Cardiac History: High Cholesterol, Hypertension Respiratory History: No Pertinent History Endocrine Medical History: Diabetes Type II Musculoskeletal History: Arthritis GI Medical History: No Pertinent History History: No Pertinent History Psycho-Social History: No Pertinent History Female Reproductive Disorders: No Pertinent History - Past Surgical History Past Surgical History: Yes Neuro Surgical History: No Pertinent History Cardiac: No Pertinent History Respiratory: No Pertinent History Gastrointestinal: Cholecystectomy Genitourinary: No Pertinent History Musculoskeletal: Orthopedic Surgery Female Surgical History: No Pertinent History Other Surgical History: back discectomy, back for arthritis, fx repair back. bilateral carpal tunel and bilateral trigger finger, back stimulator - Social History Smoking Status: Never smoker Exposure to second hand smoke: No Drug Use: none - Social Determinants of Health Will the patient participate in the screening: Yes Do you worry about a steady place to live?: No Do you have any problems with any of the following?: No known problems In the past 12 months,have you had to go without utilities?: No Transportation Issues: No Has anyone in your support network made you feel unsafe?: No Have you or anyone in your house had to go w/o enough food: No - Nursing Vital Signs Nursing Vital Signs: Initial Vital Signs Temperature 98.4 F 02/13/25 13:18 Pulse Rate 91 H 02/13/25 13:18 Respiratory Rate 16 02/13/25 13:18 Blood Pressure 137/49 02/13/25 13:18 O2 Sat by Pulse Oximetry 96 02/13/25 13:18 Pain Scale Pain Intensity 10 - Physical Exam General Appearance: alert Cardiovascular/Respiratory Exam: chest non-tender, normal breath sounds, regular rate/rhythm, no respiratory distress Gastrointestinal/Abdominal Exam: non-tender, guarding Legs Exam: right leg: pain, soft tissue tenderness Mental Status Exam: alert, oriented x 3 Skin Exam: normal color SpO2 Interpretation: normal SpO2: 96 O2 Delivery: Room Air Comments: There is tenderness and swelling in the right calf region Ordered Tests: Active Orders 24 hr Category Date Time Status LOWER LEG Stat Exams 02/13/25 13:37 Taken - Progress Progress Note: 02/13/25 14:05 Patient had stents done recently on her lower extremities patient also has been on blood thinners her exam and history consists of her twisting her leg and feeling something hurt in the mid calf region. Patient has been dealing with some swelling and pain on that side patient's x-ray negative for fracture was interpreted by myself Based on history physical examination I believe the patient suffered a hematoma secondary to a muscle strain with her being on blood thinners it is caused her to have a hematoma in that region there is no signs of compartment syndrome on exam patient does have pulses and does have feeling of her lower extremity though I am not worried at this time about a deficiency of blood circulation to the lower extremity though there is chronic blood deficiency for which she did get surgery for at this time patient be sent home on some medication to help her with her pain and advised to follow-up with 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
== END 2025-02-13 14:17 | disposition home or self-care (01) ==
LOC: ED 13:18
DX: M79.604 Pain in right leg (principal); I10 Essential (primary) hypertension; E11.9 Type 2 diabetes mellitus without complications; Z79.4 Long term (current) use of insulin; Z79.899 Other long term (current) drug therapy